=== PATIENT | male | born 1950 | race Two or more races ===

== ENCOUNTER 2025-02-11 13:21 | Inpatient (IN) | payer MEDICARE, OTHER ==
[~2025-02-11] VITALS: Ht 172.7 cm; Wt 48.8 kg
--- NOTE | 2025-02-11 13:37 | ED.PDOC ---
History of Present Illness HPI Comments 75-year-old male brought by paramedics from [facility] because of blood pressure elevation. His blood pressure has been high for the past week even though he is taking his losartan. His blood pressure prior to arrival was systolic 200. He was given losartan in the morning. Blood pressure on arrival was 165/74. Patient did have hip surgery last year since then he has been bed ridden. History of hypertension diabetes. Denies any other symptoms. Chief Complaint: High Blood Pressure Time Seen by MD: 13:30 Reviewed Notes: Nurses Notes, Medications, Allergies Allergies: Coded Allergies: Glipizide (Verified Allergy, Mild, 02/11/25) Information Source: Patient, Emergency Med Personnel Mode of Arrival: EMS Severity: Moderate Timing: Days Duration: Since onset Past Medical History PAST MEDICAL HISTORY: DM, HTN Surgical History: Denies all surgeries Social History Smoker: Non-Smoker Alcohol: Denies ETOH Use Drugs: Denies Drug Use Constitutional: denies: chills, diaphoresis, fatigue, fever, malaise, sweats, weakness, others EENTM: denies: blurred vision, double vision, ear bleeding, ear discharge, ear drainage, ear pain, ear ringing, eye pain, eye redness, hearing loss, mouth pain, mouth swelling, nasal discharge, nose bleeding, nose congestion, nose pain, photophobia, tearing, throat pain, throat swelling, voice changes, others Respiratory: denies: cough, hemoptysis, orthopnea, SOB at rest, shortness of breath, SOB with excertion, stridor, wheezing, others Cardiovascular: denies: chest pain, dizzy spells, diaphoresis, Dyspnea on exertion, edema, irregular heart beat, left arm pain, lightheadedness, palpitations, PND, syncope, others Gastrointestinal: denies: abdomen distended, abdominal pain, blood streaked bowels, constipated, diarrhea, dysphagia, difficulty swallowing, hematemesis, melena, nausea, poor appetite, poor fluid intake, rectal bleeding, rectal pain, vomiting, others Genitourinary: denies: burning, dysuria, flank pain, frequency, hematuria, incontinence, penile discharge, penile sore, pain, testicle pain, testicle swelling, urgency, others Neurological: denies: dizziness, fainting, headache, left sided numbness, left sided weakness, numbness, paresthesia, pre-existing deficit, right sided numbness, right sided weakness, seizure, speech problems, tingling, tremors, weakness, others Musculoskeletal: denies: back pain, gout, joint pain, joint swelling, muscle pain, muscle stiffness, neck pain, others Integumetry: denies: bruises, change in color, change in hair/nails, dryness, laceration, lesions, lumps, rash, wounds, others Allergic/Immunocompromised: denies: Difficulty Healing, Frequent Infections, Hives, Itching, others Hematologic/Lymphatic: denies: anemia, blood clots, easy bleeding, easy bruising, swollen glands, others Endocrine: denies: excessive hunger, excessive sweating, excessive thirst, excessive urination, flushing, intolerance to cold, intolerance to heat, unexplained weight gain, unexplained weight loss, others Psychiatric: denies: anxiety, bipolar disorder, depression, hopeless, panic disorder, schizophrenia, sleepless, suicidal, others Physical Exam General Appearance: Moderate Distress HEENT: Normal ENT Inspection, Pharynx Normal, TMs Normal Neck: Full Range of Motion, Non-Tender, Normal, Normal Inspection Respiratory: Chest Non-Tender, Lungs Clear, No Accessory Muscle Use, No Respiratory Distress, Normal Breath Sounds Cardiovascular: No Edema, No JVD, No Murmur, No Gallop, Normal Peripheral Pulses, Regular Rate/Rhythm Breast Exam: Deferred Gastrointestinal: No Organomegaly, Non Tender, No Pulsatile Mass, Normal Bowel Sounds, Soft Genitalia: Deferred Pelvic: Deferred Rectal: Deferred Extremities: No calf tenderness Musculoskeletal : Apperance: Normal Neurologic: Alert, Motor Weakness, No Sensory Deficits Cerebellar Function: NOT DONE Reflexes: NOT DONE Skin: Normal Color Peripheral Pulses: 3+ Radial (R), 3+ Radial (L) Lymphatic: No Adenopathy Was a procedure done? Was a procedure done?: No Differential Dx Considerations may include: Hypertension Electrolyte imbalance X-Ray, Labs, Meds, VS Vital Signs Date Time Temp Pulse Resp B/P (MAP) Pulse Ox O2 Delivery O2 Flow Rate FiO2 02/11/25 13:55 97.7 64 14 161/89 (113) 96 97.7 02/11/25 13:25 97.7 64 16 167/90 96 97.7 Lab Test 02/11/25 14:32 Range/Units White Blood Count 7.7 4.4-10.8 10^3/uL Red Blood Count 4.68 4.5-5.90 10^6/uL Hemoglobin 13.0 L 13.5-17.5 g/dL Hematocrit 38.5 L 41.0-53.0 % Mean Corpuscular Volume 82.3 80.0-100.0 fL Mean Corpuscular Hemoglobin 27.8 L 28.0-32.0 pg Mean Corpuscular Hemoglobin Concent 33.7 32.0-36.0 g/dL Red Cell Distribution Width 15.6 H 11.8-14.3 % Platelet Count 241 140-450 10^3/uL Mean Platelet Volume 7.2 6.9-10.8 fL Neutrophils (%) (Auto) 72.4 37.0-80.0 % Lymphocytes (%) (Auto) 11.1 10.0-50.0 % Monocytes (%) (Auto) 7.4 0.0-12.0 % Eosinophils (%) (Auto) 8.3 H 0.0-7.0 % Basophils (%) (Auto) 0.8 0.0-2.0 % Neutrophils # (Auto) 5.6 1.6-8.6 10 ^3/uL Lymphocytes # (Auto) 0.9 0.4-5.4 10 ^3/uL Monocytes # (Auto) 0.6 0-1.3 10 ^3/uL Eosinophils # (Auto) 0.6 0-0.8 10 ^3/uL Basophils # (Auto) 0.1 0-0.2 10 ^3/uL Nucleated Red Blood Cells 0.0 % Sodium Level 141 136-145 mmol/L Potassium Level 5.2 H 3.5-5.1 mmol/L Chloride Level 110 H 98-107 mmol/L Carbon Dioxide Level 22 20-31 mmol/L Anion Gap 9 5-15 Blood Urea Nitrogen 42 H 9-23 mg/dL Creatinine 2.07 H 0.700-1.30 mg/dL Glomerular Filtration Rate Calc 32 >90 mL/min BUN/Creatinine Ratio 20.3 H 10.0-20.0 Serum Glucose 161 H 74-106 mg/dL Calcium Level 9.5 8.7-10.4 mg/dL Troponin I High Sensitivity 6 </=54 ng/L Patient alert. Blood pressure elevated. Vitals stable. Answering all questions. Was given clonidine. He is bed ridden. Establish intravenous access. Was given fluids. Reviewed his previous visit. Explained to the patient. Continue monitoring. Time of 1ST Reevaluation: 13:35 Reevaluation 1ST: Unchanged Patient Education/Counseling: Diagnosis, Treatment, Prognosis Family Education/Counseling: No Family Present SEPSIS Sepsis Screen Date sepsis recognized/suspect: Feb 11, 2025 Time Sepsis recognized/suspect: 1326 Recent Procedure: No On Antibiotic Therapy: No Respiratory Rate >20: No Heart Rate >90: No Temp<36 C (96.8 F) or >38.3 C: No SBP <90 or MAP <65 mmHG: No New Acute Mental Status Change: No Is the patient on CPAP, BIPAP,: No Physician Orders Chest Portable (02/11/25 13:37) Urinalysis (02/11/25 13:37) Electrocardigram (02/11/25 13:37) Sodium Chloride 0.9% (02/11/25 13:45) Vital Signs Date Time Temp Pulse Resp B/P (MAP) Pulse Ox O2 Delivery O2 Flow Rate FiO2 02/11/25 13:55 97.7 64 14 161/89 (113) 96 97.7 02/11/25 13:25 97.7 64 16 167/90 96 97.7 Laboratory Tests Test 02/11/25 14:32 White Blood Count 7.7 10^3/uL (4.4-10.8) Departure 1 Departure Time of Disposition: 13:36 Impression: Primary Impression: Hypertensive urgency Disposition: ADMITTED INPATIENT Admit to: Med Surg Condition: Guarded Critical Care Note Critical Care Time?: Yes (90 min-critical care time only) Stability Stability form required: No Heart Score Heart Score: Heart Score Response (Comments) Value History Slightly Suspicious 0 EKG Normal 0 Age >65 2 Risk Factors >3 or Hx ASHD 2 Troponin Normal limit 0 Total 4 JOSE ELDRIDGE MD Feb 11, 2025 13:37
--- NOTE | 2025-02-11 14:15 | DVH ---
XY CHEST PORTABLE, HISTORY: sob COMPARISON: None None TECHNICAL DATA: 1 view of the chest was obtained. FINDINGS: Lines and tubes: None Cardiomediastinal silhouette: normal Pulmonary vasculature: normal Lung expansion: normal Lung airspace: normal Lung interstitium: normal Pleura: normal Pneumothorax: no Bones: Unremarkable Other: no IMPRESSION: No acute intrathoracic abnormality.
[2025-02-11 14:55] LABS: Hematocrit 38.5 % (41.0-53.0); Hemoglobin 13.0 g/dL (13.5-17.5); Mean Corpuscular Hemoglobin 27.8 pg (28.0-32.0); Mean Corpuscular Volume 82.3 fL (80.0-100.0); Nucleated Red Blood Cells % 0.0 %
[2025-02-11 15:05] LABS: Sodium 141 mmol/L (136-145)
[2025-02-11 15:06] LABS: Anion Gap 9 (5-15); Calcium 9.5 mg/dL (8.7-10.4); Carbon Dioxide 22 mmol/L (20-31); Chloride 110 mmol/L (98-107); Potassium 5.2 mmol/L (3.5-5.1)
[2025-02-11 15:11] LABS: BUN/Creatinine Ratio 20.3 (10.0-20.0); Blood Urea Nitrogen 42 mg/dL (9-23); Glucose 161 mg/dL (74-106)
[2025-02-11] MEDS: LABETALOL HCL 20 MG/4 ML VL IV ONE ×3 (16:54→22:39)
[2025-02-11] MEDS: SODIUM CHLORIDE 0.9% 1,000 ML IV ONE (17:50)
[2025-02-11 18:14] LABS: Urine Protein, UAD 2+ (Negative)
[2025-02-11 19:14] VITALS: PULSE 65; RESP 19; O2SAT 95
[2025-02-11] MEDS: HYDROcodone-ACET 5/325MG TAB PO ONE (20:24)
[2025-02-11] MEDS ORDERED: ONDANSETRON HCL 4 MG/2 ML VIAL IV PRN (22:45)
[2025-02-11] MEDS ORDERED: DOCUSATE SOD 100 MG CAP PO PRN (22:45)
[2025-02-11] MEDS ORDERED: DEXTROSE (50%) 50ML SYRG IV PRN (22:45)
[2025-02-11] MEDS ORDERED: ACETAMINOPHEN 325 MG TAB PO PRN (22:45)
[2025-02-11] MEDS: SODIUM ZIRCONIUM CYCL 10 GM PAK PO ONE (23:21)
--- NOTE | 2025-02-11 23:32 | DVHHP2 ---
History of Present Illness Reason for Visit: Hypertensive urgency History of Present Illness The patient is a 75-year-old male with past medical history of diabetes mellitus and hypertension who presented to [facility] ED with complaint of high blood pressure. His blood pressure has been high for the past week even though he is taking his losartan. His blood pressure prior to arrival was systolic 200. Patient was seen and evaluated in the ED, laboratory data shows WBC 7.7, hemoglobin 13.0, hematocrit 38.5, platelets 241, sodium 141, potassium 5.2, BUN 42, creatinine 2.07, glucose 161, calcium 9.5, troponin 6, blood pressure 218/111 trending down to 150/84, heart rate 62, temperature 97.7 F, O2 saturation 95% on room air. Chest x-ray show no acute intrathoracic abnormality. Please see medication orders section in the computer. On my assessment, patient denied chest pain, no headache, no dizziness, no shortness of breaths, no nausea, no vomiting, no fever, no chills. Patient was admitted for further evaluation and medical management. Past Medical History DM, HTN Past Surgical History Left hip fracture Family History Reviewed, noncontributory to the management of this case. Past Social History The patient lives at home, denies smoking, alcohol or illicit drugs abuse. Review of Systems Constitutional: Yes: Weakness; No: Fever, Chills, Sweats, Malaise, Other Eyes: No: Pain, Vision change, Conjunctivae inflammation, Eyelid inflammation, Other, Redness ENT: No: Ear pain, Ear discharge, Nose pain, Nose discharge, Nose congestion, Mouth pain, Mouth swelling, Throat pain, Throat swelling, Other Respiratory: No: Cough, Dry, Shortness of breath, SOB with excertion, Wheezing, Hemoptysis, Pleuritic Pain, Sputum, Wheezing, Other Cardiovascular: Other (Hypertension); No: Chest Pain, Palpitations, Orthopnea, Paroxysmal Noc. Dyspnea, Edema, Lt Headedness Gastrointestinal: No: Nausea, Vomiting, Abdominal Pain, Diarrhea, Constipation, Melena, Hematochezia, Other Genitourinary: No Dysuria, No Frequency, No Incontinence, No Hematuria, No Retention, No Other Musculoskeletal: No: other, neck pain, shoulder pain, arm pain, back pain, hand pain, leg pain, foot pain Skin: Other (Lower extremity skin discoloration); No: Rash, Lesions, Jaundice, Bruising Neurological: No: Weakness, Numbness, Incoordination, Change in speech, Confusion, Seizures, Other Allergies: Coded Allergies: Glipizide (Verified Allergy, Mild, 02/11/25) Medications Current Medications Medications Dose Ordered Sig/Norma Route Start Time Stop Time Status Last Admin Dose Admin Amlodipine Besylate 10 mg DAILY PO 02/12/25 10:00 Benazepril HCl 20 mg DAILY PO 02/12/25 10:00 UNV Hydralazine HCl 10 mg Q6HP PRN IV 02/11/25 22:45 Diagnostic Test (Pha) 1 strip IQ4HR 02/12/25 00:00 Insulin Human Regular IQ4HR SC 02/12/25 00:00 Dextrose 50 ml UD PRN IV 02/11/25 22:45 Sodium Chloride 10 ml Q8HR IV 02/12/25 06:00 Acetaminophen/ Hydrocodone Bitart 1 tab Q4HP PRN PO 02/11/25 22:45 Ondansetron HCl 4 mg Q4HP PRN IV 02/11/25 22:45 Docusate Sodium 100 mg BIDPRN PRN PO 02/11/25 22:45 Acetaminophen 650 mg Q6HP PRN PO 02/11/25 22:45 Exam Vital Signs Vital Signs Date Time Temp Pulse Resp B/P (MAP) Pulse Ox O2 Delivery O2 Flow Rate FiO2 02/11/25 23:23 107 126/96 02/11/25 19:14 19 95 Room Air* 0 21 02/11/25 13:55 97.7 97.7 General Appearance: Alert, Oriented X3, Cooperative, No acute distress HEENT: Atraumatic, PERRLA, EOMI, Mucous membr. moist/pink Respiratory: Clear to auscultation, Normal air movement Cardiovascular: Regular rate, Normal S1, Normal S2, No murmurs Abdominal: Normal bowel sounds, Soft, No tenderness, No hepatospenomegaly, No masses Extremities: No clubbing, No cyanosis, No edema, Normal pulses, No tenderness/swelling Skin: No rashes, No breakdown, No significant lesion Neuro: Normal speech, Normal tone, Sensation intact, Cranial nerves 3-12 NL, Reflexes 2+, Other (Generalized weakness) Psych/Mental Status: Mental status NL, Mood NL Labs/Xrays Labs Test 02/11/25 16:15 8/21/25 14:32 Range/Units Urine Color Light-yellow Yellow Urine Clarity Clear Clear Urine pH 6.0 5.0-9.0 Urine Specific [place] 1.014 1.001-1.035 Urine Protein 2+ H Negative Urine Ketones Negative Negative Urine Blood Trace H Negative /uL Urine Nitrite Negative Negative Urine Bilirubin Negative Negative Urine Urobilinogen Normal Negative mg/dL Urine Leukocyte Esterase Negative Negative /uL Urine RBC 1 0 - 3 /hpf Urine Microscopic WBC 1 0-3 /HPF Urine Squamous Epithelial Cells None seen <5 /hpf Urine Bacteria None seen None Seen /hpf Urine Glucose 2+ H Normal mg/dL White Blood Count 7.7 4.4-10.8 10^3/uL Red Blood Count 4.68 4.5-5.90 10^6/uL Hemoglobin 13.0 L 13.5-17.5 g/dL Hematocrit 38.5 L 41.0-53.0 % Mean Corpuscular Volume 82.3 80.0-100.0 fL Mean Corpuscular Hemoglobin 27.8 L 28.0-32.0 pg Mean Corpuscular Hemoglobin Concent 33.7 32.0-36.0 g/dL Red Cell Distribution Width 15.6 H 11.8-14.3 % Platelet Count 241 140-450 10^3/uL Mean Platelet Volume 7.2 6.9-10.8 fL Neutrophils (%) (Auto) 72.4 37.0-80.0 % Lymphocytes (%) (Auto) 11.1 10.0-50.0 % Monocytes (%) (Auto) 7.4 0.0-12.0 % Eosinophils (%) (Auto) 8.3 H 0.0-7.0 % Basophils (%) (Auto) 0.8 0.0-2.0 % Neutrophils # (Auto) 5.6 1.6-8.6 10 ^3/uL Lymphocytes # (Auto) 0.9 0.4-5.4 10 ^3/uL Monocytes # (Auto) 0.6 0-1.3 10 ^3/uL Eosinophils # (Auto) 0.6 0-0.8 10 ^3/uL Basophils # (Auto) 0.1 0-0.2 10 ^3/uL Nucleated Red Blood Cells 0.0 % Sodium Level 141 136-145 mmol/L Potassium Level 5.2 H 3.5-5.1 mmol/L Chloride Level 110 H 98-107 mmol/L Carbon Dioxide Level 22 20-31 mmol/L Anion Gap 9 5-15 Blood Urea Nitrogen 42 H 9-23 mg/dL Creatinine 2.07 H 0.700-1.30 mg/dL Glomerular Filtration Rate Calc 32 >90 mL/min BUN/Creatinine Ratio 20.3 H 10.0-20.0 Serum Glucose 161 H 74-106 mg/dL Calcium Level 9.5 8.7-10.4 mg/dL Troponin I High Sensitivity 6 </=54 ng/L PATIENT: GAURAV MCCARTHY ACCT: [id number] UNIT: [id number] : 1950 LOC: ER ROOM / BED: / AGE / SEX: 75 / M ADM STATUS: REG ER SERVICE 1337 ORDERING PHYSICIAN: JOSE ELDRIDGE MD PROCEDURE(s): CXRP - CHEST PORTABLE REASON: sob ORDER NUMBER(s): [id number], ACCESSION NUMBER(s): [id number] XY CHEST PORTABLE, HISTORY: sob COMPARISON: None None TECHNICAL DATA: 1 view of the chest was obtained. FINDINGS: Lines and tubes: None Cardiomediastinal silhouette: normal Pulmonary vasculature: normal Lung expansion: normal Lung airspace: normal Lung interstitium: normal Pleura: normal Pneumothorax: no Bones: Unremarkable Other: no IMPRESSION: No acute intrathoracic abnormality. SEPSIS Sepsis Screen Date sepsis recognized/suspect: Feb 11, 2025 Time Sepsis recognized/suspect: 1400 Recent Procedure: No On Antibiotic Therapy: No Respiratory Rate >20: No Heart Rate >90: No Temp<36 C (96.8 F) or >38.3 C: No SBP <90 or MAP <65 mmHG: No New Acute Mental Status Change: No Is the patient on CPAP, BIPAP,: No Physician Orders Insert Midline (02/11/25 15:50) Journeyman Operator Assistant (02/11/25 ) Consistent Carb(Ccho)Diabetes (02/12/25 Breakfast) Amlodipine Tablet (Norvasc Tablet) (02/12/25 10:00) Benazepril Hcl Tablet (Lotensin Tablet) (02/12/25 10:00) Hydralazine Injection (Apresoline Inject (02/11/25 22:45) *[facility] (02/11/25 22:31) Glucose Blood (Accu-Chek Comfort Curve T (02/12/25 00:00) Insulin R (Human) (Insulin R) (02/12/25 00:00) Dextrose 50% Syringe (02/11/25 22:45) Allergies (02/11/25:31) Code Status (02/11/25:) Sodium Chloride Lock (Saline Lock Ns) (02/12/25 06:00) Oxygen Per Hour (02/11/25:31) Hydrocodone-Acet 5/325mg Tab ([place] 5/32 (02/11/25 22:45) Ondansetron Hcl (Zofran) (02/11/25 22:45) Docusate Sodium Capsule (Colace Capsule) (02/11/25 22:45) Complete Blood Count (02/12/25 04:00) Comprehensive Metabolic Panel (02/12/25 04:00) Condition: Serious (02/11/25 22:31) Acetaminophen Tablet (Tylenol Tablet) (02/11/25 22:45) Bedrest With Bathroom Privileg (02/11/25 22:31) Sequential Compression Device (02/11/25 ) Admit (02/11/25 23:31) Nitroglycerin Sublingual (Ntrostat Subli (02/11/25 23:45) Morphine Sulfate Injection (02/11/25 23:45) Stat Ekg For Chest Pain (02/11/25 23:31) Notify Md Of Changes From Base (02/11/25 23:31) Coding Team Lead For 24 Hours (02/11/25 23:31) Emergency Dysrhythmia Protocol (02/11/25 23:31) Rhythm Strips Once Every Shift (02/11/25 23:31) Oxygen By Nasal Cannula (02/11/25 23:31) Vital Signs Date Time Temp Pulse Resp B/P (MAP) Pulse Ox O2 Delivery O2 Flow Rate FiO2 02/11/25 23:23 107 126/96 02/11/25 23:21 129/66 02/11/25 22:39 68 205/97 02/11/25 21:26 69 143/85 02/11/25 20:26 61 195/92 02/11/25 20:00 61 02/11/25 19:51 195/92 (126) 02/11/25 19:14 65 19 95 Room Air* 0 21 02/11/25 19:00 65 19 165/94 (117) 95 02/11/25 18:00 111 22 111/65 (80) 95 02/11/25 17:52 59 151/84 02/11/25 17:21 151/84 (106) 02/11/25 16:54 72 218/112 02/11/25 16:00 132 20 118/68 (85) 92 Laboratory Tests Test 02/11/25 14:32 White Blood Count 7.7 10^3/uL (4.4-10.8) Medications Medications Dose Ordered Sig/Norma Route Start Time Stop Time Status Last Admin Dose Admin Acetaminophen/ Hydrocodone Bitart 1 tab ONCE ONCE PO 02/11/25 20:15 02/11/25 20:16 DC 02/11/25 20:24 1 TAB Amlodipine Besylate 10 mg ONCE ONCE PO 02/11/25 22:45 02/11/25 22:47 DC 02/11/25 23:21 10 MG Labetalol HCl 10 mg ONCE ONCE IV 02/11/25 16:50 02/11/25 16:51 DC 02/11/25 16:54 10 MG Labetalol HCl 10 mg ONCE ONCE IV 02/11/25 20:15 02/11/25 20:16 DC 02/11/25 20:26 10 MG Labetalol HCl 10 mg ONCE ONCE IV 02/11/25 22:45 02/11/25 22:46 DC 02/11/25 22:39 10 MG Sodium Chloride 1,000 ml @ 150 mls/hr Q6H40M ONCE IV 02/11/25 13:45 02/11/25 20:24 DC 02/11/25 17:50 150 MLS/HR Zirconium Oxide 10 gm ONCE ONCE PO 02/11/25 22:45 02/11/25 22:47 DC 02/11/25 23:21 10 GM Assessment/Plan Assessment/Plan Hypertensive urgency Hyperkalemia Acute renal failure Generalized weakness Diabetes mellitus with hyperglycemia Plan 1. Admit to telemetry unit 2. Breathing treatment 3. Pain control management 4. Management of fluids and electrolytes 5. Consultation for Nephrology 6. Diagnostic tests chest x-ray 7. DVT prophylaxis on SCDs 8. Repeat labs CBC, CMP in a.m. 9. Continue with current medical management 10. Treatment plan discussed with patient and RN. Patient verbalized understanding. Plan discussed with: Patient, Other (RN) My Orders Orders - ARVIN ROMO DNP Procedure Category Date Status Time Consistent DIET 02/12/25 Transmitted Carb(Ccho)Diabetes Breakfast Amlodipine Tablet PHA 02/12/25 In Process (Norvasc Tablet) 10:00 Benazepril Hcl Tablet PHA 02/12/25 Pending (Lotensin Tablet) 10:00 Hydralazine Injection PHA 02/11/25 In Process (Apresoline Inject 22:45 *[facility] CONS 02/11/25 Transmitted -[place] 22:31 Glucose Blood PHA 02/12/25 In Process (Accu-Chek Comfort 00:00 Insulin R (Human) PHA 02/12/25 In Process (Insulin R) 00:00 Dextrose 50% Syringe PHA 02/11/25 In Process 22:45 Allergies [place] 02/11/25 In Process 22:31 Code Status CODE 02/11/25 Transmitted 22:31 Sodium Chloride Lock PHA 02/12/25 In Process (Saline Lock Ns) 06:00 Oxygen Per Hour RT 02/11/25 Transmitted 22:31 Hydrocodone-Acet PHA 02/11/25 In Process 5/325mg Tab ([place] 22:45 Ondansetron Hcl PHA 02/11/25 In Process (Zofran) 22:45 Docusate Sodium PHA 02/11/25 In Process Capsule (Colace 22:45 Complete Blood Count LAB 02/12/25 Verified 04:00 Comprehensive LAB 02/12/25 Verified Metabolic Panel 04:00 Condition: Serious [place] 02/11/25 In Process 22:31 Acetaminophen Tablet PHA 02/11/25 In Process (Tylenol Tablet) 22:45 Bedrest With Bathroom [place] 02/11/25 In Process Privileg 22:31 Sequential [place] 02/11/25 In Process Compression Device Admit ADMIT 02/11/25 Transmitted 23:31 Nitroglycerin PHA 02/11/25 Transmitted Sublingual (Ntrostat 23:45 Morphine Sulfate PHA 02/11/25 Transmitted Injection 23:45 Stat Ekg For Chest [place] 02/11/25 Transmitted Pain 23:31 Notify Of Changes [place] 02/11/25 Transmitted From Base 23:31 Coding Team Lead For [place] 02/11/25 Transmitted 24 Hours 23:31 Emergency Dysrhythmia [facility] 02/11/25 Transmitted Protocol 23:31 Rhythm Strips Once [place] 02/11/25 Transmitted Every Shift 23:31 Oxygen By Nasal RT 02/11/25 Transmitted Cannula 23:31 Problem List: (1) Hypertensive urgency (2) Hyperkalemia (3) Acute renal failure (4) Generalized weakness (5) Diabetes mellitus with hyperglycemia Date of Service: Feb 11, 2025 Billing Provider: ARVIN ROMO DNP Common Visit Codes: [id number] INP/OBS CARE (HIGH) ARVIN ROMO DNP Feb 11, 2025 23:32
[2025-02-11] MEDS ORDERED: NITROGLYCERIN 0.4 MG SL TAB SL PRN (23:45)
[2025-02-11] MEDS ORDERED: MORPHINE SULFATE INJ 2 MG/ml SYRG IV PRN (23:45)
[2025-02-12] VITALS (8 sets, daily range): BP systolic 144–161; BP diastolic 76–87; PULSE 61–71; RESP 16–18; TEMP 97.6–98.1; O2SAT 95–98
[2025-02-12] MEDS: ACCU-CHEK COMFORT CURVE STRIP VI SCH (00:38)
[2025-02-12] MEDS: InsuLIN REG 1unit/0.01ml Soln (100units/ml) SC SCH (00:41)
[2025-02-12] MEDS: SODIUM CHLOR 0.9% PF (SALINE LOCK) 10ML VIAL/SYR IV SCH (04:25)
[2025-02-12] MEDS: HYDROcodone-ACET 5/325MG TAB PO PRN (05:13)
--- NOTE | 2025-02-12 06:47 | ECG ---
[facility] Test Date: 2025-02-11 Test Time: 15:09:13 Pat Name: GAURAV MCCARTHY Department: [facility] ED Patient ID: [facility]-[id number] Room: 0218T A Gender: M Motor Vehicle Assembly Supervisor: renetta : 1950 Requested By: JOSE ELDRIDGE Order Number: [id number] Reading MD: Félix Talamantes Measurements Intervals [place] Rate: 59 P: 17 CO: 194 QRS: 83 QRSD: 112 T: 82 QT: 427 QTc: 423 Interpretive Statements Sinus rhythm Borderline intraventricular conduction delay Electronically Signed On 02-16-2025 14:26:36 PDT by Félix Talamantes Please click the below link to view image of tracing.
[2025-02-12 08:49] LABS: Hematocrit 39.3 % (41.0-53.0); Hemoglobin 12.7 g/dL (13.5-17.5); Mean Corpuscular Hemoglobin 28.0 pg (28.0-32.0); Mean Corpuscular Volume 86.5 fL (80.0-100.0); Nucleated Red Blood Cells % 0.0 %
[2025-02-12 09:06] LABS: Alanine Aminotransferase 10 U/L (7-40); Albumin 3.7 g/dL (3.2-4.8); Alkaline Phosphatase 84 U/L (46-116); Anion Gap 11 (5-15); BUN/Creatinine Ratio 25.0 (10.0-20.0); Calcium 9.0 mg/dL (8.7-10.4); Potassium 4.9 mmol/L (3.5-5.1); Sodium 144 mmol/L (136-145); Total Protein 6.1 g/dL (5.7-8.2)
[2025-02-12 09:13] LABS: Bilirubin, Total 0.2 mg/dL (0.2-1.0); Blood Urea Nitrogen 51 mg/dL (9-23); Carbon Dioxide 19 mmol/L (20-31); Chloride 114 mmol/L (98-107); Glucose 127 mg/dL (74-106)
--- NOTE | 2025-02-12 09:56 | DVHINCON2 ---
Date of service: Feb 12, 2025 Referring Physician Raimundo Hopkins, nurse practitioner Reason for Consultation Acute kidney injury History of Present Illness Patient is a 75-year-old male with past medical history significant for diabetes mellitus type 2, atrial fibrillation, prolapsed disc and hypertension is admitted from a [facility] for hypertensive urgency. On admission patient found to have elevated BUN creatinine nephrology is consulted for acute kidney injury Past Medical History PAST MEDICAL HISTORY: DM, HTN, AFib, mentioned prolapse disk, bed-bound Past Surgical History Surgical History: Back surgery Allergies: Coded Allergies: Glipizide (Verified Allergy, Mild, 02/11/25) Current Medications Current Medications Medications (Trade) Dose Ordered Sig/Norma Route PRN Reason Start Time Stop Time Status Last Admin Amlodipine Besylate (Norvasc Tablet) 10 mg DAILY PO 02/12/25 10:00 Benazepril HCl (Lotensin Tablet) 20 mg DAILY PO 02/12/25 10:00 Future Hold Hydralazine HCl (Apresoline Injection) 10 mg Q6HP PRN IV SBP>150 02/11/25 22:45 Diagnostic Test (Pha) (Accu-Chek Comfort Curve T) 1 strip IQ4HR 02/12/25 00:00 02/12/25 08:20 Insulin Human Regular (InsuLIN R) IQ4HR SC 02/12/25 00:00 02/12/25 08:21 Dextrose 50 ml UD PRN IV Blood Sugar LESS THAN 60 02/11/25 22:45 Sodium Chloride (Saline Lock Ns) 10 ml Q8HR IV 02/12/25 06:00 02/12/25 04:25 Acetaminophen/ Hydrocodone Bitart ([place] 5/325MG Tab) 1 tab Q4HP PRN PO MODERATE PAIN (4-6 PAIN SCALE) 02/11/25 22:45 02/12/25 05:13 Ondansetron HCl (Zofran) 4 mg Q4HP PRN IV NAUSEA / VOMITING 02/11/25 22:45 Docusate Sodium (Colace Capsule) 100 mg BIDPRN PRN PO FOR CONSTIPATION 02/11/25 22:45 Acetaminophen (Tylenol Tablet) 650 mg Q6HP PRN PO PAIN SCALE 1-3 OR TEMP>100.4 02/11/25 22:45 Nitroglycerin (Ntrostat Sublingual) 0.4 mg Q5MINP PRN SL FOR CHEST PAIN 02/11/25 23:45 Morphine Sulfate 2 mg Q30M PRN IV FOR CHEST PAIN 02/11/25 23:45 Family History: FH: cancer G8 FATHER Malignant neoplasm of breast G8 MOTHER Review of Systems All 12 item review of systems reviewed with the patient nonsignificant except what is mentioned in the history of present illness H&P Exam Vital Signs/I&O Vital Sign Date Time Temp Pulse Resp B/P (MAP) Pulse Ox O2 Delivery O2 Flow Rate FiO2 02/12/25 08:42 98.1 61 16 144/81 (102) 95 98.1 02/12/25 04:33 Nasal Cannula* 2 28 Intake and Output 02/11/25 02/12/25 19:00 07:00 Intake Total 150 ml Output Total 300 ml Balance 150 ml -300 ml Intake IV Total 150 ml Output Urine Total 300 ml Physical Exam Patient lying comfortably in bed appeared in no acute distress Lungs clear to auscultation bilaterally Cardiac exam regular rate and rhythm GI obese nontender was normal Extremities no clubbing cyanosis or edema Neuro has limited movement of bilateral lower extremity Labs/Diagnostic Data Labs/Diagnostic Data Laboratory Tests Test 02/12/25 08:11 02/12/25 06:48 02/12/25 04:19 02/12/25 00:37 Range/Units POC Glucose 137 H 218 H 252 H 70-106 mg/dl White Blood Count 8.8 4.4-10.8 10^3/uL Red Blood Count 4.54 4.5-5.90 10^6/uL Hemoglobin 12.7 L 13.5-17.5 g/dL Hematocrit 39.3 L 41.0-53.0 % Mean Corpuscular Volume 86.5 # 80.0-100.0 fL Mean Corpuscular Hemoglobin 28.0 28.0-32.0 pg Mean Corpuscular Hemoglobin Concent 32.4 32.0-36.0 g/dL Red Cell Distribution Width 15.7 H 11.8-14.3 % Platelet Count 224 140-450 10^3/uL Mean Platelet Volume 7.3 6.9-10.8 fL Neutrophils (%) (Auto) 73.3 37.0-80.0 % Lymphocytes (%) (Auto) 10.1 10.0-50.0 % Monocytes (%) (Auto) 8.4 0.0-12.0 % Eosinophils (%) (Auto) 7.2 H 0.0-7.0 % Basophils (%) (Auto) 1.0 0.0-2.0 % Neutrophils # (Auto) 6.4 1.6-8.6 10 ^3/uL Lymphocytes # (Auto) 0.9 0.4-5.4 10 ^3/uL Monocytes # (Auto) 0.7 0-1.3 10 ^3/uL Eosinophils # (Auto) 0.6 0-0.8 10 ^3/uL Basophils # (Auto) 0.1 0-0.2 10 ^3/uL Nucleated Red Blood Cells 0.0 % Sodium Level 144 136-145 mmol/L Potassium Level 4.9 3.5-5.1 mmol/L Chloride Level 114 H 98-107 mmol/L Carbon Dioxide Level 19 L 20-31 mmol/L Anion Gap 11 5-15 Blood Urea Nitrogen 51 H 9-23 mg/dL Creatinine 2.04 H 0.700-1.30 mg/dL Glomerular Filtration Rate Calc 33 >90 mL/min BUN/Creatinine Ratio 25.0 H 10.0-20.0 Serum Glucose 127 H 74-106 mg/dL Calcium Level 9.0 8.7-10.4 mg/dL Total Bilirubin 0.2 0.2-1.0 mg/dL Aspartate Amino Transferase (AST) 15 13-40 U/L Alanine Aminotransferase (ALT) 10 7-40 U/L Alkaline Phosphatase 84 46-116 U/L Total Protein 6.1 5.7-8.2 g/dL Albumin 3.7 3.2-4.8 g/dL Test 02/11/25 16:15 02/11/25 14:32 Range/Units Urine Color Light-yellow Yellow Urine Clarity Clear Clear Urine pH 6.0 5.0-9.0 Urine Specific [place] 1.014 1.001-1.035 Urine Protein 2+ H Negative Urine Ketones Negative Negative Urine Blood Trace H Negative /uL Urine Nitrite Negative Negative Urine Bilirubin Negative Negative Urine Urobilinogen Normal Negative mg/dL Urine Leukocyte Esterase Negative Negative /uL Urine RBC 1 0 - 3 /hpf Urine Microscopic WBC 1 0-3 /HPF Urine Squamous Epithelial Cells None seen <5 /hpf Urine Bacteria None seen None Seen /hpf Urine Glucose 2+ H Normal mg/dL White Blood Count 7.7 4.4-10.8 10^3/uL Red Blood Count 4.68 4.5-5.90 10^6/uL Hemoglobin 13.0 L 13.5-17.5 g/dL Hematocrit 38.5 L 41.0-53.0 % Mean Corpuscular Volume 82.3 80.0-100.0 fL Mean Corpuscular Hemoglobin 27.8 L 28.0-32.0 pg Mean Corpuscular Hemoglobin Concent 33.7 32.0-36.0 g/dL Red Cell Distribution Width 15.6 H 11.8-14.3 % Platelet Count 241 140-450 10^3/uL Mean Platelet Volume 7.2 6.9-10.8 fL Neutrophils (%) (Auto) 72.4 37.0-80.0 % Lymphocytes (%) (Auto) 11.1 10.0-50.0 % Monocytes (%) (Auto) 7.4 0.0-12.0 % Eosinophils (%) (Auto) 8.3 H 0.0-7.0 % Basophils (%) (Auto) 0.8 0.0-2.0 % Neutrophils # (Auto) 5.6 1.6-8.6 10 ^3/uL Lymphocytes # (Auto) 0.9 0.4-5.4 10 ^3/uL Monocytes # (Auto) 0.6 0-1.3 10 ^3/uL Eosinophils # (Auto) 0.6 0-0.8 10 ^3/uL Basophils # (Auto) 0.1 0-0.2 10 ^3/uL Nucleated Red Blood Cells 0.0 % Sodium Level 141 136-145 mmol/L Potassium Level 5.2 H 3.5-5.1 mmol/L Chloride Level 110 H 98-107 mmol/L Carbon Dioxide Level 22 20-31 mmol/L Anion Gap 9 5-15 Blood Urea Nitrogen 42 H 9-23 mg/dL Creatinine 2.07 H 0.700-1.30 mg/dL Glomerular Filtration Rate Calc 32 >90 mL/min BUN/Creatinine Ratio 20.3 H 10.0-20.0 Serum Glucose 161 H 74-106 mg/dL Calcium Level 9.5 8.7-10.4 mg/dL Troponin I High Sensitivity 6 </=54 ng/L Assessment Acute kidney injury superimposed Chronic Kidney Disease secondary hemodynamic mediated Hypertensive urgency Diabetes mellitus type 2 Atrial fibrillation Bed-bound Paraplegia Recommendations Closely monitor fluid and electrolytes Avoid nephrotoxic medications Strict I&Os Questions for me Check urine electrolytes and protein excretion Check kidney ultrasound Insulin sliding scale Blood pressure control We will continue to follow Patient seen and examined by myself. I discussed my plan of care with the patient and primary nurse at the bedside I would like to thank Raimundo for the consult, will follow Plan discussed with: Patient MEGAN CARLTON MD Feb 12, 2025 09:56
[2025-02-12] MEDS ORDERED: BENAZEPRIL HCL 10 MG TAB PO SCH (10:00)
[2025-02-12 10:27] LABS: Magnesium 2.0 mg/dL (1.6-2.6)
--- NOTE | 2025-02-12 11:11 | DVH ---
US KIDNEY HISTORY: bryn COMPARISON: None TECHNIQUE: Transverse and longitudinal grayscale and color doppler images were obtained of the kidney s and bladder. FINDINGS: Right kidney: Size: 9.5 cm Cortical thickness: Normal Echogenicity: Increased Stones: None Masses: 2.8 cm cyst. Hydronephrosis: None Ureters: Not well visualized. Other: None Left kidney: Size: 11.3 cm Cortical thickness: Normal Echogenicity: Normal Stones: 1.1 cm stone. Masses: None Hydronephrosis: None Ureters: Not well visualized. Other: None Bladder: Normal Other: Prominent prostate. IMPRESSION: Probable 1.1 cm nonobstructive left kidney stone. Echogenic right kidney seen with medical renal disease.
--- NOTE | 2025-02-12 12:36 | DVHPN2 ---
Reviewed: Care Plan, H&P, Labs, Medications, Previous Orders, Radiology Changes from previous H/P or p: No Changes Eyes: No Pain, No Vision change, No Conjunctivae inflammation, No Eyelid inflammation, No Other, No Redness ENT: No Ear pain, No Ear discharge, No Nose pain, No Nose discharge, No Nose congestion, No Mouth pain, No Mouth swelling, No Throat pain, No Throat swelling, No Other Cardiovascular: No Chest Pain, No Palpitations, No Orthopnea, No Paroxysmal Noc. Dyspnea, No Edema, No Lt Headedness; Other (Hypertension) Respiratory: No Cough, No Dry, No Shortness of breath, No SOB with excertion, No Wheezing, No Hemoptysis, No Pleuritic Pain, No Sputum, No Other Gastrointestinal: No Nausea, No Vomiting, No Abdominal Pain, No Diarrhea, No Constipation, No Melena, No Hematochezia, No Other Genitourinary: No Dysuria, No Frequency, No Incontinence, No Hematuria, No Retention, No Other Musculoskeletal: No other, No neck pain, No shoulder pain, No arm pain, No back pain, No hand pain, No leg pain, No foot pain Skin: No Rash, No Lesions, No Jaundice, No Bruising; Other (Lower extremity skin discoloration) Objective Vitals Vital Signs Date Time Temp Pulse Resp B/P (MAP) Pulse Ox O2 Delivery O2 Flow Rate FiO2 02/12/25 10:29 144/81 02/12/25 08:42 98.1 61 16 95 98.1 02/12/25 04:33 Nasal Cannula* 2 28 Intake/Output Intake and Output 02/12/25 07:00 Intake Total 150 ml Output Total 300 ml Balance -150 ml Intake IV Total 150 ml Output Urine Total 300 ml Medications Current Medications Medications Dose Ordered Sig/Norma Route Start Time Stop Time Status Last Admin Dose Admin Amlodipine Besylate 10 mg DAILY PO 02/12/25 10:00 02/12/25 10:29 10 MG Benazepril HCl 20 mg DAILY PO 02/12/25 10:00 Hold Hydralazine HCl 10 mg Q6HP PRN IV 02/11/25 22:45 Diagnostic Test (Pha) 1 strip IQ4HR 02/12/25 00:00 02/12/25 12:22 1 STRIP Insulin Human Regular IQ4HR SC 02/12/25 00:00 02/12/25 12:23 2 UNITS Dextrose 50 ml UD PRN IV 02/11/25 22:45 Sodium Chloride 10 ml Q8HR IV 02/12/25 06:00 02/12/25 04:25 10 ML Acetaminophen/ Hydrocodone Bitart 1 tab Q4HP PRN PO 02/11/25 22:45 02/12/25 10:28 1 TAB Ondansetron HCl 4 mg Q4HP PRN IV 02/11/25 22:45 Docusate Sodium 100 mg BIDPRN PRN PO 02/11/25 22:45 Acetaminophen 650 mg Q6HP PRN PO 02/11/25 22:45 Nitroglycerin 0.4 mg Q5MINP PRN SL 02/11/25 23:45 Morphine Sulfate 2 mg Q30M PRN IV 02/11/25 23:45 Sodium Bicarbonate 650 mg TID PO 02/12/25 14:00 Laboratory Results Laboratory Tests 02/12/25 06:48 Chemistry Test 02/11/25 14:32 02/12/25 06:48 Calcium Level 9.5 mg/dL (8.7-10.4) 9.0 mg/dL (8.7-10.4) Albumin 3.7 g/dL (3.2-4.8) Magnesium Level 2.0 mg/dL (1.6-2.6) Phosphorus Level 4.0 mg/dL (2.4-5.1) Total Protein 6.1 g/dL (5.7-8.2) Cardiac Markers Test 02/12/25 12:07 B-Type Natriuretic Peptide Pending LFT Test 02/12/25 06:48 Alanine Aminotransferase (ALT) 10 U/L (7-40) Alkaline Phosphatase 84 U/L (46-116) Aspartate Amino Transferase (AST) 15 U/L (13-40) Total Bilirubin 0.2 mg/dL (0.2-1.0) Urinalysis Test 02/11/25 16:15 Urine Color Light-yellow (Yellow) Urine Clarity Clear (Clear) Urine pH 6.0 (5.0-9.0) Urine Specific [place] 1.014 (1.001-1.035) Urine Protein 2+ (Negative) H Urine Ketones Negative (Negative) Urine Blood Trace /uL (Negative) H Urine Nitrite Negative (Negative) Urine Bilirubin Negative (Negative) Urine Urobilinogen Normal mg/dL (Negative) Urine Leukocyte Esterase Negative /uL (Negative) Urine RBC 1 /hpf (0 - 3) Urine Microscopic WBC 1 /HPF (0-3) Urine Squamous Epithelial Cells None seen /hpf (<5) Urine Bacteria None seen /hpf (None Seen) Urine Glucose 2+ mg/dL (Normal) H Labs and/or images reviewed: Labs reviewed by me, Image(s) reviewed by me Assessment/Plan Assessment/Plan Acute kidney injury superimposed Chronic Kidney Disease secondary hemodynamic mediated, consult by Dr. Olivia appreciated Hypertensive urgency: Losartan, amlodipine Diabetes mellitus type 2 Atrial fibrillation Bed-bound Paraplegia Plan discussed with: Patient Date of Service: Feb 12, 2025 Billing Provider: TRANG MONTERROSO MD Common Visit Codes: [id number] INP/OBS CARE(HIGH) TRANG MONTERROSO MD Feb 12, 2025 12:36
[2025-02-12] MEDS: LOSARTAN POTASSIUM 50 MG TAB PO ONE (15:03)
[2025-02-12] MEDS: SODIUM BICARBONATE 650 MG TAB PO SCH (15:03)
[2025-02-12 20:19] LABS: Urine Budding Yeast LOADED /hpf (None Seen); Urine Protein, UAD 3+ (Negative)
[2025-02-12 20:58] LABS: Protein, Urine 785.0 mg/dL (1-14)
[2025-02-13] VITALS (8 sets, daily range): BP systolic 125–184; BP diastolic 76–122; PULSE 64–83; RESP 16–19; TEMP 97.7–98.3; O2SAT 96–97
[2025-02-13] MEDS: hydrALAZINE HCL 20 MG/ML VL IV PRN (00:59)
--- NOTE | 2025-02-13 08:40 | DVHPN2 ---
Reviewed: Care Plan, H&P, Labs, Medications, Previous Orders, Radiology Changes from previous H/P or p: No Changes Eyes: No Pain, No Vision change, No Conjunctivae inflammation, No Eyelid inflammation, No Other, No Redness ENT: No Ear pain, No Ear discharge, No Nose pain, No Nose discharge, No Nose congestion, No Mouth pain, No Mouth swelling, No Throat pain, No Throat swelling, No Other Cardiovascular: No Chest Pain, No Palpitations, No Orthopnea, No Paroxysmal Noc. Dyspnea, No Edema, No Lt Headedness; Other (Hypertension) Respiratory: No Cough, No Dry, No Shortness of breath, No SOB with excertion, No Wheezing, No Hemoptysis, No Pleuritic Pain, No Sputum, No Other Gastrointestinal: No Nausea, No Vomiting, No Abdominal Pain, No Diarrhea, No Constipation, No Melena, No Hematochezia, No Other Genitourinary: No Dysuria, No Frequency, No Incontinence, No Hematuria, No Retention, No Other Musculoskeletal: No other, No neck pain, No shoulder pain, No arm pain, No back pain, No hand pain, No leg pain, No foot pain Skin: No Rash, No Lesions, No Jaundice, No Bruising; Other (Lower extremity skin discoloration) Objective Vitals Vital Signs Date Time Temp Pulse Resp B/P (MAP) Pulse Ox O2 Delivery O2 Flow Rate FiO2 02/13/25 08:14 97.7 76 19 140/84 (102) 97 97.7 02/12/25 20:00 Room Air* 0 21 Intake/Output Intake and Output 02/13/25 07:00 Intake Total 1100 ml Output Total 1600 ml Balance -500 ml Intake Oral 1100 ml Output Urine Total 1600 ml Medications Current Medications Medications Dose Ordered Sig/Norma Route Start Time Stop Time Status Last Admin Dose Admin Amlodipine Besylate 10 mg DAILY PO 02/12/25 10:00 02/12/25 10:29 10 MG Hydralazine HCl 10 mg Q6HP PRN IV 02/11/25 22:45 02/13/25 00:59 10 MG Diagnostic Test (Pha) 1 strip IQ4HR 02/12/25 00:00 02/13/25 07:51 1 STRIP Insulin Human Regular IQ4HR SC 02/12/25 00:00 02/13/25 07:56 3 UNITS Dextrose 50 ml UD PRN IV 02/11/25 22:45 Sodium Chloride 10 ml Q8HR IV 02/12/25 06:00 02/13/25 05:54 10 ML Acetaminophen/ Hydrocodone Bitart 1 tab Q4HP PRN PO 02/11/25 22:45 02/12/25 10:28 1 TAB Ondansetron HCl 4 mg Q4HP PRN IV 02/11/25 22:45 Docusate Sodium 100 mg BIDPRN PRN PO 02/11/25 22:45 Acetaminophen 650 mg Q6HP PRN PO 02/11/25 22:45 Nitroglycerin 0.4 mg Q5MINP PRN SL 02/11/25 23:45 Morphine Sulfate 2 mg Q30M PRN IV 02/11/25 23:45 Sodium Bicarbonate 650 mg TID PO 02/12/25 14:00 02/13/25 05:54 650 MG Losartan Potassium 50 mg DAILY PO 02/13/25 10:00 Laboratory Results Laboratory Tests 02/12/25 06:48 Cardiac Markers Test 02/12/25 12:07 B-Type Natriuretic Peptide 51.41 pg/mL (0-100) Urinalysis Test 02/12/25 19:00 Urine Color Light-yellow (Yellow) Urine Clarity Turbid (Clear) H Urine pH 6.0 (5.0-9.0) Urine Specific [place] 1.018 (1.001-1.035) Urine Protein 3+ (Negative) H Urine Ketones Negative (Negative) Urine Blood 1+ /uL (Negative) H Urine Nitrite Negative (Negative) Urine Bilirubin Negative (Negative) Urine Urobilinogen Normal mg/dL (Negative) Urine Leukocyte Esterase 2+ /uL (Negative) Urine RBC 125 /hpf (0 - 3) Urine Microscopic WBC 57 /HPF (0-3) H Urine Squamous Epithelial Cells Few /hpf (<5) Urine Bacteria Few /hpf (None Seen) H Urine Yeast (Budding) Loaded /hpf (None Seen) Urine Creatinine 86.84 mg/dL (30.0-125.0) Urine Protein/Creatinine Ratio 9.04 Urine Sodium 16 mmol/L (40-220) L Urine Glucose 1+ mg/dL (Normal) H Urine Total Protein 785.0 mg/dL (1-14) H Labs and/or images reviewed: Labs reviewed by me, Image(s) reviewed by me Assessment/Plan Assessment/Plan Acute kidney injury superimposed on Chronic Kidney Disease secondary to hemodynamically mediated, consult by Dr. Olivia appreciated Hypertensive urgency: Losartan, amlodipine Diabetes mellitus type 2 Atrial fibrillation Bed-bound GERD pantoprazole History of right hip surgery March 2024 Gait disability secondary to right hip surgery CT LS spine, CT hip ordered Physical therapy ordered Patient has no family members Caregiver Mindi [phone] at bedside Plan discussed with: Patient My Orders Orders - TRANG MONTERROSO MD Procedure Category Date Status Time Losartan Tablet PHA 02/13/25 In Process (Cozaar Tablet) 10:00 Cleanse Wound With MONCHO 02/12/25 In Process Wound Clean 11:03 Complete Blood Count LAB 02/13/25 Logged 07:04 Basic Metabolic Panel LAB 02/13/25 Logged 07:04 Date of Service: Feb 13, 2025 Billing Provider: TRANG MONTERROSO MD Common Visit Codes: [id number] INP/OBS CARE(HIGH) TRANG MONTERROSO MD Feb 13, 2025 08:40
[2025-02-13] MEDS: PANTOPRAZOLE 40 MG TAB PO ONE (09:53)
[2025-02-13] MEDS: LOSARTAN POTASSIUM 50 MG TAB PO SCH (09:53)
--- NOTE | 2025-02-13 09:53 | DVHPN2 ---
Progress Note Date Seen: Feb 13, 2025 Medical Necessity Reason Pt with a Central, PICC or Fol: No Subjective Patient reports: No new complaints Other Systems: Patient seen and examined by myself today in follow-up Objective vital signs Vital Sign Date Time Temp Pulse Resp B/P (MAP) Pulse Ox O2 Delivery O2 Flow Rate FiO2 02/13/25 08:14 97.7 76 19 140/84 (102) 97 97.7 02/12/25 20:00 Room Air* 0 21 Total Intake and Output 02/12/25 02/12/25 02/13/25 15:00 23:00 07:00 Intake Total 700 ml 400 ml Output Total 400 ml 1200 ml Balance 300 ml -800 ml medications Current Medications Medications Dose Ordered Sig/Norma Route Start Time Stop Time Status Last Admin Dose Admin Amlodipine Besylate 10 mg DAILY PO 02/12/25 10:00 02/12/25 10:29 10 MG Hydralazine HCl 10 mg Q6HP PRN IV 02/11/25 22:45 02/13/25 00:59 10 MG Diagnostic Test (Pha) 1 strip IQ4HR 02/12/25 00:00 02/13/25 07:51 1 STRIP Insulin Human Regular IQ4HR SC 02/12/25 00:00 02/13/25 07:56 3 UNITS Dextrose 50 ml UD PRN IV 02/11/25 22:45 Sodium Chloride 10 ml Q8HR IV 02/12/25 06:00 02/13/25 05:54 10 ML Acetaminophen/ Hydrocodone Bitart 1 tab Q4HP PRN PO 02/11/25 22:45 02/12/25 10:28 1 TAB Ondansetron HCl 4 mg Q4HP PRN IV 02/11/25 22:45 Docusate Sodium 100 mg BIDPRN PRN PO 02/11/25 22:45 Acetaminophen 650 mg Q6HP PRN PO 02/11/25 22:45 Nitroglycerin 0.4 mg Q5MINP PRN SL 02/11/25 23:45 Morphine Sulfate 2 mg Q30M PRN IV 02/11/25 23:45 Sodium Bicarbonate 650 mg TID PO 02/12/25 14:00 02/13/25 05:54 650 MG Losartan Potassium 50 mg DAILY PO 02/13/25 10:00 Pantoprazole Sodium 40 mg DAILY@0600 PO 02/14/25 06:00 Examination: LUNGS:Normal, CVS:Normal, MSK:Normal laboratory and microbiology Laboratory Tests 02/12/25 06:48 Test 02/12/25 06:48 Range/Units Serum Glucose 127 H 74-106 mg/dL Problem List/Assessment/Plan Problem List/Assessment/Plan Acute kidney injury superimposed Chronic Kidney Disease secondary hemodynamic mediated, FeNa < 1% Hypertensive urgency Diabetes mellitus type 2 Nephrotic range proteinuria, urine protein creatinine ratio >9 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 Atrial fibrillation Nonobstructing left kidney stone Bed-bound Paraplegia Recommendations No new labs Increased urine output Strict I&Os kidney ultrasound reported 1.1 cm nonobstructing left kidney stone Insulin sliding scale Blood pressure control We will continue to follow Plan discussed with: Patient My Orders My Orders Orders - MEGAN CARLTON MD Procedure Category Date Status Time Sodium Bicarb Tab PHA 02/12/25 In Process 14:00 Dietary Evaluation Review Comments: Nutrition Recommendation: 1) Gavin 1 pk BID, MVI w/ minerals 1 tab daily, VitC 500mg BID, Zinc sulfate 220mg BID x 10 days 2) Monitor PO intake, lab values, weight trend, and I/O Expected Outcomes/Goals: Wound to improve Fu 3-5 days MEGAN CARLTON MD Feb 13, 2025 09:53
--- NOTE | 2025-02-13 10:02 | DVH ---
Indication: Right hip pain status post surgery 2023 Technique: CT axial images of the right hip are obtained without contrast. Coronal and sagittal refor mats were obtained. Radiation Dose Information: CTDI volume is 33.52 mGy. Dose-length product is 2.47 mGy*cm Comparison: None FINDINGS /impression: Right femoral neck cannulated screws. The fractures extend beyond the anterior cortex of the right fe moral head by approximately 5 mm. There are sclerotic changes within the right femoral head which may represent sequela of avascular ne crosis. Moderate degenerate changes right hip most pronounced along the posterior hip joint space. Atherosclerotic calcification disease. Prostate enlarged measuring 5.2 cm transversely. Correlate with PSA levels. There is mild cortical irregularity along the lateral aspect of the right femoral head with 2 mm offs et which can represent sequela of a previous fracture. If there is concern for acute fracture/ ree fr acture recommend obtaining MRI of the right hip. Correlate with pain symptoms and tenderness.
--- NOTE | 2025-02-13 10:21 | DVH ---
EXAM: CT LS SPINE WO CONTRAST HISTORY: Unable to walk COMPARISON: None CTDIvol 38.59 mGy, DLP 1241.72 mGy*cm. TECHNIQUE: Multiple axial CT images of the spine were obtained using bone algorithm. Axial and de la torre l reformatting was done. Bone and soft tissue windows were reviewed. FINDINGS: No evidence of definite acute fracture, spinal dislocation, or significant appearing acute subluxatio n is seen. Moderate canal stenosis at L2-L3. Moderate to severe canal stenosis at L3-L4, L4-L5 and L5 -S1. Chronic appearing compression fracture of superior endplate of L3. IMPRESSION: No definite CT evidence of acute fracture or dislocation of the bony lumbar spine.
[2025-02-13 10:35] LABS: Potassium 4.8 mmol/L (3.5-5.1); Sodium 140 mmol/L (136-145)
[2025-02-13 10:36] LABS: Anion Gap 8 (5-15); Calcium 9.8 mg/dL (8.7-10.4); Carbon Dioxide 24 mmol/L (20-31)
[2025-02-13 10:38] LABS: Chloride 108 mmol/L (98-107)
[2025-02-13 10:41] LABS: BUN/Creatinine Ratio 17.3 (10.0-20.0); Blood Urea Nitrogen 41 mg/dL (9-23); Glucose 167 mg/dL (74-106)
[2025-02-13 10:50] LABS: Hematocrit 38.8 % (41.0-53.0); Hemoglobin 12.8 g/dL (13.5-17.5); Mean Corpuscular Hemoglobin 27.4 pg (28.0-32.0); Mean Corpuscular Volume 83.2 fL (80.0-100.0); Nucleated Red Blood Cells % 0.0 %
--- NOTE | 2025-02-13 16:52 | DVH ---
CLINICAL INDICATION: hx of ORIF hip outside facility TECHNIQUE: XY R HIP 1V XRAY Comparison: CT CT R HIP WITH OUT CONTRAST on DOS: 02/13/25 FINDINGS/IMPRESSION: : There is no evidence of acute fracture or dislocation. Soft tissues are unremarkable. Surgical pin fixation of the right hip. Moderate to severe degenerative changes of the right hip.
[2025-02-14] VITALS (8 sets, daily range): BP systolic 143–166; BP diastolic 78–87; PULSE 58–87; RESP 17–20; TEMP 96.8–98.6; O2SAT 93–100
[2025-02-14] MEDS: PANTOPRAZOLE 40 MG TAB PO SCH (05:31)
[2025-02-14 05:38] LABS: Hematocrit 38.9 % (41.0-53.0); Hemoglobin 13.1 g/dL (13.5-17.5); Mean Corpuscular Hemoglobin 28.1 pg (28.0-32.0); Mean Corpuscular Volume 83.5 fL (80.0-100.0); Nucleated Red Blood Cells % 0.0 %
[2025-02-14 05:46] LABS: Anion Gap 11 (5-15); Carbon Dioxide 21 mmol/L (20-31); Potassium 4.9 mmol/L (3.5-5.1); Sodium 141 mmol/L (136-145)
[2025-02-14 05:47] LABS: Calcium 9.7 mg/dL (8.7-10.4); Chloride 109 mmol/L (98-107)
[2025-02-14 05:52] LABS: BUN/Creatinine Ratio 18.9 (10.0-20.0)
[2025-02-14 05:54] LABS: Blood Urea Nitrogen 45 mg/dL (9-23); Glucose 139 mg/dL (74-106)
--- NOTE | 2025-02-14 09:43 | DVHPN2 ---
Reviewed: Care Plan, H&P, Labs, Medications, Previous Orders, Radiology Changes from previous H/P or p: No Changes Eyes: No Pain, No Vision change, No Conjunctivae inflammation, No Eyelid inflammation, No Other, No Redness ENT: No Ear pain, No Ear discharge, No Nose pain, No Nose discharge, No Nose congestion, No Mouth pain, No Mouth swelling, No Throat pain, No Throat swelling, No Other Cardiovascular: No Chest Pain, No Palpitations, No Orthopnea, No Paroxysmal Noc. Dyspnea, No Edema, No Lt Headedness; Other (Hypertension) Respiratory: No Cough, No Dry, No Shortness of breath, No SOB with excertion, No Wheezing, No Hemoptysis, No Pleuritic Pain, No Sputum, No Other Gastrointestinal: No Nausea, No Vomiting, No Abdominal Pain, No Diarrhea, No Constipation, No Melena, No Hematochezia, No Other Genitourinary: No Dysuria, No Frequency, No Incontinence, No Hematuria, No Retention, No Other Musculoskeletal: No other, No neck pain, No shoulder pain, No arm pain, No back pain, No hand pain, No leg pain, No foot pain Skin: No Rash, No Lesions, No Jaundice, No Bruising; Other (Lower extremity skin discoloration) Objective Vitals Vital Signs Date Time Temp Pulse Resp B/P (MAP) Pulse Ox O2 Delivery O2 Flow Rate FiO2 02/14/25 09:30 97.8 76 18 151/80 (103) 95 97.8 02/13/25 20:00 Room Air* 0 21 Intake/Output Intake and Output 02/14/25 07:00 Intake Total 995 ml Output Total 1050 ml Balance -55 ml Intake Oral 995 ml Output Urine Total 1050 ml Medications Current Medications Medications Dose Ordered Sig/Norma Route Start Time Stop Time Status Last Admin Dose Admin Amlodipine Besylate 10 mg DAILY PO 02/12/25 10:00 02/13/25 09:52 10 MG Hydralazine HCl 10 mg Q6HP PRN IV 02/11/25 22:45 02/14/25 05:31 10 MG Diagnostic Test (Pha) 1 strip IQ4HR 02/12/25 00:00 02/14/25 04:22 1 STRIP Insulin Human Regular IQ4HR SC 02/12/25 00:00 02/14/25 04:23 2 UNITS Dextrose 50 ml UD PRN IV 02/11/25 22:45 Sodium Chloride 10 ml Q8HR IV 02/12/25 06:00 02/14/25 05:32 10 ML Acetaminophen/ Hydrocodone Bitart 1 tab Q4HP PRN PO 02/11/25 22:45 02/13/25 13:57 1 TAB Ondansetron HCl 4 mg Q4HP PRN IV 02/11/25 22:45 Docusate Sodium 100 mg BIDPRN PRN PO 02/11/25 22:45 Acetaminophen 650 mg Q6HP PRN PO 02/11/25 22:45 Nitroglycerin 0.4 mg Q5MINP PRN SL 02/11/25 23:45 Morphine Sulfate 2 mg Q30M PRN IV 02/11/25 23:45 Sodium Bicarbonate 650 mg TID PO 02/12/25 14:00 02/14/25 05:31 650 MG Losartan Potassium 50 mg DAILY PO 02/13/25 10:00 02/13/25 09:53 50 MG Pantoprazole Sodium 40 mg DAILY@0600 PO 02/14/25 06:00 02/14/25 05:31 40 MG Laboratory Results Laboratory Tests 02/14/25 05:01 Chemistry Test 02/13/25 10:00 02/14/25 05:01 Calcium Level 9.8 mg/dL (8.7-10.4) 9.7 mg/dL (8.7-10.4) Urinalysis Test 02/12/25 19:00 Urine Color Light-yellow (Yellow) Urine Clarity Turbid (Clear) H Urine pH 6.0 (5.0-9.0) Urine Specific [place] 1.018 (1.001-1.035) Urine Protein 3+ (Negative) H Urine Ketones Negative (Negative) Urine Blood 1+ /uL (Negative) H Urine Nitrite Negative (Negative) Urine Bilirubin Negative (Negative) Urine Urobilinogen Normal mg/dL (Negative) Urine Leukocyte Esterase 2+ /uL (Negative) Urine RBC 125 /hpf (0 - 3) Urine Microscopic WBC 57 /HPF (0-3) H Urine Squamous Epithelial Cells Few /hpf (<5) Urine Bacteria Few /hpf (None Seen) H Urine Yeast (Budding) Loaded /hpf (None Seen) Urine Creatinine 86.84 mg/dL (30.0-125.0) Urine Protein/Creatinine Ratio 9.04 Urine Sodium 16 mmol/L (40-220) L Urine Glucose 1+ mg/dL (Normal) H Urine Total Protein 785.0 mg/dL (1-14) H Labs and/or images reviewed: Labs reviewed by me, Image(s) reviewed by me Assessment/Plan Assessment/Plan Acute kidney injury superimposed on Chronic Kidney Disease secondary to hemodynamically mediated, consult by Dr. Olivia appreciated Hypertensive urgency: Losartan, amlodipine Diabetes mellitus type 2 Atrial fibrillation Bed-bound GERD pantoprazole History of right hip surgery March 2024, right hip x-ray negative for any fracture, orthopedic consult for Dr. Webb pending Gait disability secondary to right hip surgery CT LS spine negative Physical therapy ordered Patient has no family members Caregiver Mindi [phone] at bedside Plan discussed with: Patient My Orders Orders - TRANG MONTERROSO MD Procedure Category Date Status Time * Orthopedic Consult CONS 02/13/25 Transmitted 13:35 Complete Blood Count LAB 02/15/25 Verified 05:00 Complete Blood Count LAB 02/16/25 Verified 05:00 Basic Metabolic Panel LAB 02/15/25 Verified 05:00 Basic Metabolic Panel LAB 02/16/25 Verified 05:00 Psa Total+% Free LAB 02/14/25 Logged 09:27 Date of Service: Feb 14, 2025 Billing Provider: TRANG MONTERROSO MD Common Visit Codes: [id number] INP/OBS CARE(HIGH) TRANG MONTERROSO MD Feb 14, 2025 09:43
--- NOTE | 2025-02-14 10:42 | DVHPN2 ---
Progress Note Date Seen: Feb 14, 2025 Medical Necessity Reason Pt with a Central, PICC or Fol: No Subjective Patient reports: No new complaints Other Systems: Patient seen and examined by myself today in follow-up Objective vital signs Vital Sign Date Time Temp Pulse Resp B/P (MAP) Pulse Ox O2 Delivery O2 Flow Rate FiO2 02/14/25 10:27 151/80 02/14/25 09:30 97.8 76 18 95 97.8 02/13/25 20:00 Room Air* 0 21 Total Intake and Output 02/13/25 02/13/25 02/14/25 15:00 23:00 07:00 Intake Total 620 ml 375 ml Output Total 800 ml 250 ml Balance -180 ml 125 ml medications Current Medications Medications Dose Ordered Sig/Norma Route Start Time Stop Time Status Last Admin Dose Admin Amlodipine Besylate 10 mg DAILY PO 02/12/25 10:00 02/14/25 10:27 10 MG Hydralazine HCl 10 mg Q6HP PRN IV 02/11/25 22:45 02/14/25 05:31 10 MG Diagnostic Test (Pha) 1 strip IQ4HR 02/12/25 00:00 02/14/25 10:00 1 STRIP Insulin Human Regular IQ4HR SC 02/12/25 00:00 02/14/25 10:30 6 UNITS Dextrose 50 ml UD PRN IV 02/11/25 22:45 Sodium Chloride 10 ml Q8HR IV 02/12/25 06:00 02/14/25 05:32 10 ML Acetaminophen/ Hydrocodone Bitart 1 tab Q4HP PRN PO 02/11/25 22:45 02/13/25 13:57 1 TAB Ondansetron HCl 4 mg Q4HP PRN IV 02/11/25 22:45 Docusate Sodium 100 mg BIDPRN PRN PO 02/11/25 22:45 Acetaminophen 650 mg Q6HP PRN PO 02/11/25 22:45 Nitroglycerin 0.4 mg Q5MINP PRN SL 02/11/25 23:45 Morphine Sulfate 2 mg Q30M PRN IV 02/11/25 23:45 Sodium Bicarbonate 650 mg TID PO 02/12/25 14:00 02/14/25 05:31 650 MG Losartan Potassium 50 mg DAILY PO 02/13/25 10:00 02/14/25 10:26 50 MG Pantoprazole Sodium 40 mg DAILY@0600 PO 02/14/25 06:00 02/14/25 05:31 40 MG Examination: LUNGS:Normal, CVS:Normal, MSK:Normal laboratory and microbiology Laboratory Tests 02/14/25 05:01 Test 02/14/25 05:01 Range/Units Serum Glucose 139 H 74-106 mg/dL Problem List/Assessment/Plan Problem List/Assessment/Plan Acute kidney injury superimposed Chronic Kidney Disease stage 4 secondary hemodynamic mediated, FeNa < 1% Hypertensive urgency, improved Diabetes mellitus type 2 Nephrotic range proteinuria, urine protein creatinine ratio >9 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 Atrial fibrillation Nonobstructing left kidney stone Bed-bound Paraplegia Recommendations Kidney function stabilize Chronic Kidney Disease stage 4 Increased urine output Strict I&Os kidney ultrasound reported 1.1 cm nonobstructing left kidney stone Insulin sliding scale Blood pressure control I will sign off this case please reconsult as needed, thank you for the kind Follow-up my office two weeks after discharge Plan discussed with: Patient Dietary Evaluation Review Comments: Nutrition Recommendation: 1) Gavin 1 pk BID, MVI w/ minerals 1 tab daily, VitC 500mg BID, Zinc sulfate 220mg BID x 10 days 2) Monitor PO intake, lab values, weight trend, and I/O Expected Outcomes/Goals: Wound to improve Fu 3-5 days MEGAN CARLTON MD Feb 14, 2025 10:42
--- NOTE | 2025-02-14 12:59 | DVHINCON2 ---
Date of service: Feb 14, 2025 Reason for Consultation Right hip pain hx of surgery History of Present Illness 75 yo M with hx of ORIF Right hip fracture at outside institution. Since that ti me patient has not been able to bear weight. He states hes deconditioned; has been in rehab Past Medical History DM, HTN, AFib, mentioned prolapse disk, bed-bound Family History: FH: cancer G8 FATHER Malignant neoplasm of breast G8 MOTHER Allergies: Coded Allergies: Glipizide (Verified Allergy, Mild, 02/11/25) Home Meds Active Scripts Metformin Hydrochloride (Metformin Hcl) 1,000 Mg Tab, 1 TAB PO BID, #60 TAB 5 Refills Prov:TRANG MONTERROSO MD 02/15/25 Current Medications Current Medications Medications (Trade) Dose Ordered Sig/Norma Route PRN Reason Start Time Stop Time Status Last Admin Pantoprazole Sodium (Protonix Tablet) 40 mg DAILY@0600 PO 02/14/25 06:00 02/14/25 05:31 Review of Systems 10 point ROS is neg except per HPI Vital Signs Vital Signs Date Time Temp Pulse Resp B/P (MAP) Pulse Ox O2 Delivery O2 Flow Rate FiO2 02/14/25 10:27 151/80 02/14/25 09:30 97.8 76 18 95 97.8 02/13/25 20:00 Room Air* 0 21 Physical Exam NAD RLE: ext rotate for comfort +TA/GS weak knee ext/flexion Labs/Diagnostic Data Labs Test 02/14/25 12:30 02/14/25 05:01 02/12/25 19:00 02/12/25 12:07 Range/Units POC Glucose 231 H 70-106 mg/dl White Blood Count 6.6 4.4-10.8 10^3/uL Red Blood Count 4.66 4.5-5.90 10^6/uL Hemoglobin 13.1 L 13.5-17.5 g/dL Hematocrit 38.9 L 41.0-53.0 % Mean Corpuscular Volume 83.5 80.0-100.0 fL Mean Corpuscular Hemoglobin 28.1 28.0-32.0 pg Mean Corpuscular Hemoglobin Concent 33.6 32.0-36.0 g/dL Red Cell Distribution Width 15.4 H 11.8-14.3 % Platelet Count 223 140-450 10^3/uL Mean Platelet Volume 7.3 6.9-10.8 fL Neutrophils (%) (Auto) 70.1 37.0-80.0 % Lymphocytes (%) (Auto) 11.5 10.0-50.0 % Monocytes (%) (Auto) 7.5 0.0-12.0 % Eosinophils (%) (Auto) 10.1 H 0.0-7.0 % Basophils (%) (Auto) 0.8 0.0-2.0 % Neutrophils # (Auto) 4.6 1.6-8.6 10 ^3/uL Lymphocytes # (Auto) 0.8 0.4-5.4 10 ^3/uL Monocytes # (Auto) 0.5 0-1.3 10 ^3/uL Eosinophils # (Auto) 0.7 0-0.8 10 ^3/uL Basophils # (Auto) 0.1 0-0.2 10 ^3/uL Nucleated Red Blood Cells 0.0 % Sodium Level 141 136-145 mmol/L Potassium Level 4.9 3.5-5.1 mmol/L Chloride Level 109 H 98-107 mmol/L Carbon Dioxide Level 21 20-31 mmol/L Anion Gap 11 5-15 Blood Urea Nitrogen 45 H 9-23 mg/dL Creatinine 2.38 H 0.700-1.30 mg/dL Glomerular Filtration Rate Calc 27 >90 mL/min BUN/Creatinine Ratio 18.9 10.0-20.0 Serum Glucose 139 H 74-106 mg/dL Calcium Level 9.7 8.7-10.4 mg/dL Urine Color Light-yellow Yellow Urine Clarity Turbid H Clear Urine pH 6.0 5.0-9.0 Urine Specific [place] 1.018 1.001-1.035 Urine Protein 3+ H Negative Urine Ketones Negative Negative Urine Blood 1+ H Negative /uL Urine Nitrite Negative Negative Urine Bilirubin Negative Negative Urine Urobilinogen Normal Negative mg/dL Urine Leukocyte Esterase 2+ Negative /uL Urine RBC 125 0 - 3 /hpf Urine Microscopic WBC 57 H 0-3 /HPF Urine Squamous Epithelial Cells Few <5 /hpf Urine Bacteria Few H None Seen /hpf Urine Yeast (Budding) Loaded None Seen /hpf Urine Creatinine 86.84 30.0-125.0 mg/dL Urine Protein/Creatinine Ratio 9.04 Urine Sodium 16 L 40-220 mmol/L Urine Glucose 1+ H Normal mg/dL Urine Total Protein 785.0 H 1-14 mg/dL B-Type Natriuretic Peptide 51.41 0-100 pg/mL Vitamin D 25-Hydroxy 55.0 30.0-100 ng/mL Test 02/12/25 06:48 02/11/25 14:32 Range/Units Uric Acid 7.0 3.7-9.2 mg/dL Phosphorus Level 4.0 2.4-5.1 mg/dL Magnesium Level 2.0 1.6-2.6 mg/dL Total Bilirubin 0.2 0.2-1.0 mg/dL Aspartate Amino Transferase (AST) 15 13-40 U/L Alanine Aminotransferase (ALT) 10 7-40 U/L Alkaline Phosphatase 84 46-116 U/L Total Protein 6.1 5.7-8.2 g/dL Albumin 3.7 3.2-4.8 g/dL Parathyroid Hormone (Intact) 155.4 H 18.4-80.1 pg/mL Troponin I High Sensitivity 6 </=54 ng/L Plan/Recommendation 75 yo M with endstage right hip OA/ screw cutout/ hx of ORIF right hip fx at outside institution 1. Toe touch WB RLE with walker 2. PT 3. pain control 4. plan for elective Right ABUNDIO/ hardware removal as outpatient once patient medically improves 5. deconditioned with being bedbound Plan discussed with: Patient HEBER HARTMAN MD Feb 14, 2025 12:59
[2025-02-15] VITALS (9 sets, daily range): BP systolic 132–166; BP diastolic 75–101; PULSE 71–80; RESP 16–20; TEMP 97.7–98.5; O2SAT 95–98
[2025-02-15 07:17] LABS: Hematocrit 38.8 % (41.0-53.0); Hemoglobin 13.0 g/dL (13.5-17.5); Mean Corpuscular Hemoglobin 28.0 pg (28.0-32.0); Mean Corpuscular Volume 83.5 fL (80.0-100.0); Nucleated Red Blood Cells % 0.2 %
[2025-02-15 07:32] LABS: Anion Gap 12 (5-15); Calcium 9.6 mg/dL (8.7-10.4); Potassium 4.8 mmol/L (3.5-5.1); Sodium 142 mmol/L (136-145)
[2025-02-15 07:37] LABS: Carbon Dioxide 19 mmol/L (20-31); Chloride 111 mmol/L (98-107)
[2025-02-15 07:38] LABS: BUN/Creatinine Ratio 18.9 (10.0-20.0)
[2025-02-15 07:41] LABS: Blood Urea Nitrogen 48 mg/dL (9-23); Glucose 124 mg/dL (74-106)
--- NOTE | 2025-02-15 10:44 | DVHPN2 ---
Reviewed: Care Plan, H&P, Labs, Medications, Previous Orders, Radiology Changes from previous H/P or p: No Changes Eyes: No Pain, No Vision change, No Conjunctivae inflammation, No Eyelid inflammation, No Other, No Redness ENT: No Ear pain, No Ear discharge, No Nose pain, No Nose discharge, No Nose congestion, No Mouth pain, No Mouth swelling, No Throat pain, No Throat swelling, No Other Cardiovascular: No Chest Pain, No Palpitations, No Orthopnea, No Paroxysmal Noc. Dyspnea, No Edema, No Lt Headedness; Other (Hypertension) Respiratory: No Cough, No Dry, No Shortness of breath, No SOB with excertion, No Wheezing, No Hemoptysis, No Pleuritic Pain, No Sputum, No Other Gastrointestinal: No Nausea, No Vomiting, No Abdominal Pain, No Diarrhea, No Constipation, No Melena, No Hematochezia, No Other Genitourinary: No Dysuria, No Frequency, No Incontinence, No Hematuria, No Retention, No Other Musculoskeletal: No other, No neck pain, No shoulder pain, No arm pain, No back pain, No hand pain, No leg pain, No foot pain Skin: No Rash, No Lesions, No Jaundice, No Bruising; Other (Lower extremity skin discoloration) Objective Vitals Vital Signs Date Time Temp Pulse Resp B/P (MAP) Pulse Ox O2 Delivery O2 Flow Rate FiO2 02/15/25 09:08 154/97 02/15/25 09:01 98.2 72 16 98 98.2 02/15/25 08:12 Room Air* 0 21 Intake/Output Intake and Output 02/15/25 07:00 Intake Total 2850 ml Balance 2850 ml Intake Oral 2850 ml # Voids 3 Medications Current Medications Medications Dose Ordered Sig/Norma Route Start Time Stop Time Status Last Admin Dose Admin Amlodipine Besylate 10 mg DAILY PO 02/12/25 10:00 02/15/25 09:08 10 MG Hydralazine HCl 10 mg Q6HP PRN IV 02/11/25 22:45 02/14/25 05:31 10 MG Diagnostic Test (Pha) 1 strip IQ4HR 02/12/25 00:00 02/15/25 08:00 1 STRIP Insulin Human Regular IQ4HR SC 02/12/25 00:00 02/15/25 04:04 3 UNITS Dextrose 50 ml UD PRN IV 02/11/25 22:45 Sodium Chloride 10 ml Q8HR IV 02/12/25 06:00 02/15/25 05:42 10 ML Acetaminophen/ Hydrocodone Bitart 1 tab Q4HP PRN PO 02/11/25 22:45 02/13/25 13:57 1 TAB Ondansetron HCl 4 mg Q4HP PRN IV 02/11/25 22:45 Docusate Sodium 100 mg BIDPRN PRN PO 02/11/25 22:45 Acetaminophen 650 mg Q6HP PRN PO 02/11/25 22:45 Nitroglycerin 0.4 mg Q5MINP PRN SL 02/11/25 23:45 Morphine Sulfate 2 mg Q30M PRN IV 02/11/25 23:45 Sodium Bicarbonate 650 mg TID PO 02/12/25 14:00 02/15/25 05:41 650 MG Losartan Potassium 50 mg DAILY PO 02/13/25 10:00 02/15/25 09:07 50 MG Pantoprazole Sodium 40 mg DAILY@0600 PO 02/14/25 06:00 02/15/25 05:41 40 MG Laboratory Results Laboratory Tests 02/15/25 06:22 Chemistry Test 02/15/25 06:22 Calcium Level 9.6 mg/dL (8.7-10.4) Urinalysis Test 02/12/25 19:00 Urine Color Light-yellow (Yellow) Urine Clarity Turbid (Clear) H Urine pH 6.0 (5.0-9.0) Urine Specific [place] 1.018 (1.001-1.035) Urine Protein 3+ (Negative) H Urine Ketones Negative (Negative) Urine Blood 1+ /uL (Negative) H Urine Nitrite Negative (Negative) Urine Bilirubin Negative (Negative) Urine Urobilinogen Normal mg/dL (Negative) Urine Leukocyte Esterase 2+ /uL (Negative) Urine RBC 125 /hpf (0 - 3) Urine Microscopic WBC 57 /HPF (0-3) H Urine Squamous Epithelial Cells Few /hpf (<5) Urine Bacteria Few /hpf (None Seen) H Urine Yeast (Budding) Loaded /hpf (None Seen) Urine Creatinine 86.84 mg/dL (30.0-125.0) Urine Protein/Creatinine Ratio 9.04 Urine Sodium 16 mmol/L (40-220) L Urine Glucose 1+ mg/dL (Normal) H Urine Total Protein 785.0 mg/dL (1-14) H Labs and/or images reviewed: Labs reviewed by me, Image(s) reviewed by me Assessment/Plan Assessment/Plan Acute kidney injury superimposed on Chronic Kidney Disease secondary to hemodynamically mediated, consult by Dr. Olivia appreciated Hypertensive urgency: Losartan, amlodipine Diabetes mellitus type 2 Atrial fibrillation Bed-bound GERD pantoprazole History of right hip surgery March 2024 at an outside institution, orthopedic consult by Dr. Webb appreciated: Endstage right hip OA/ screw cutout/ hx of ORIF right hip fx at outside institution: Advised pain management physical therapy and hardware removal and right total hip arthroplasty as an outpatient once the patient is medically stabilized Gait disability secondary to right hip surgery CT LS spine negative Physical therapy ordered Patient has no family members Caregiver Mindi [phone] at bedside Discussed with the patient and the caregiver and the patient and the patient is being discharged to residential facility for physical therapy and pain management Plan discussed with: Patient Date of Service: Feb 15, 2025 Billing Provider: TRANG MONTERROSO MD Common Visit Codes: [id number] INP/OBS CARE(HIGH) TRANG MONTERROSO MD Feb 15, 2025 10:44
--- NOTE | 2025-02-15 10:54 | DVHDS2 ---
Discharge Summary Date of Admission Feb 11, 2025 at 23:33 Date of Discharge: Feb 15, 2025 Admitting Diagnosis Right hip pain Wounds: None Labs/Diagnostic Data: Laboratory Results Test 02/15/25 08:45 02/15/25 06:22 02/14/25 05:01 02/12/25 19:00 POC Glucose 150 mg/dl (70-106) White Blood Count 6.8 10^3/uL (4.4-10.8) Red Blood Count 4.65 10^6/uL (4.5-5.90) Hemoglobin 13.0 g/dL (13.5-17.5) Hematocrit 38.8 % (41.0-53.0) Mean Corpuscular Volume 83.5 fL (80.0-100.0) Mean Corpuscular Hemoglobin 28.0 pg (28.0-32.0) Mean Corpuscular Hemoglobin Concent 33.5 g/dL (32.0-36.0) Red Cell Distribution Width 15.5 % (11.8-14.3) Platelet Count 226 10^3/uL (140-450) Mean Platelet Volume 7.5 fL (6.9-10.8) Neutrophils (%) (Auto) 70.5 % (37.0-80.0) Lymphocytes (%) (Auto) 11.7 % (10.0-50.0) Monocytes (%) (Auto) 7.6 % (0.0-12.0) Eosinophils (%) (Auto) 9.4 % (0.0-7.0) Basophils (%) (Auto) 0.8 % (0.0-2.0) Neutrophils # (Auto) 4.8 10 ^3/uL (1.6-8.6) Lymphocytes # (Auto) 0.8 10 ^3/uL (0.4-5.4) Monocytes # (Auto) 0.5 10 ^3/uL (0-1.3) Eosinophils # (Auto) 0.6 10 ^3/uL (0-0.8) Basophils # (Auto) 0.1 10 ^3/uL (0-0.2) Nucleated Red Blood Cells 0.2 % Sodium Level 142 mmol/L (136-145) Potassium Level 4.8 mmol/L (3.5-5.1) Chloride Level 111 mmol/L (98-107) Carbon Dioxide Level 19 mmol/L (20-31) Anion Gap 12 (5-15) Blood Urea Nitrogen 48 mg/dL (9-23) Creatinine 2.54 mg/dL (0.700-1.30) Glomerular Filtration Rate Calc 25 mL/min (>90) BUN/Creatinine Ratio 18.9 (10.0-20.0) Serum Glucose 124 mg/dL (74-106) Calcium Level 9.6 mg/dL (8.7-10.4) Urine Color Light-yellow (Yellow) Urine Clarity Turbid (Clear) Urine pH 6.0 (5.0-9.0) Urine Specific [place] 1.018 (1.001-1.035) Urine Protein 3+ (Negative) Urine Ketones Negative (Negative) Urine Blood 1+ /uL (Negative) Urine Nitrite Negative (Negative) Urine Bilirubin Negative (Negative) Urine Urobilinogen Normal mg/dL (Negative) Urine Leukocyte Esterase 2+ /uL (Negative) Urine RBC 125 /hpf (0 - 3) Urine Microscopic WBC 57 /HPF (0-3) Urine Squamous Epithelial Cells Few /hpf (<5) Urine Bacteria Few /hpf (None Seen) Urine Yeast (Budding) Loaded /hpf (None Seen) Urine Creatinine 86.84 mg/dL (30.0-125.0) Urine Protein/Creatinine Ratio 9.04 Urine Sodium 16 mmol/L (40-220) Urine Glucose 1+ mg/dL (Normal) Urine Total Protein 785.0 mg/dL (1-14) Test 02/12/25 12:07 02/12/25 06:48 02/11/25 14:32 B-Type Natriuretic Peptide 51.41 pg/mL (0-100) Vitamin D 25-Hydroxy 55.0 ng/mL (30.0-100) Uric Acid 7.0 mg/dL (3.7-9.2) Phosphorus Level 4.0 mg/dL (2.4-5.1) Magnesium Level 2.0 mg/dL (1.6-2.6) Total Bilirubin 0.2 mg/dL (0.2-1.0) Aspartate Amino Transferase (AST) 15 U/L (13-40) Alanine Aminotransferase (ALT) 10 U/L (7-40) Alkaline Phosphatase 84 U/L (46-116) Total Protein 6.1 g/dL (5.7-8.2) Albumin 3.7 g/dL (3.2-4.8) Parathyroid Hormone (Intact) 155.4 pg/mL (18.4-80.1) Troponin I High Sensitivity 6 ng/L (</=54) Other Laboratory Tests 02/15/25 06:22 Brief Hx & Hospital Course: 75-year-old male go ahead surgery for the right hip March 2024 at an outside and initiation burden by caregiver for right hip pain CT showed screws were cut out and had were his lose seen by orthopedic Dr Webb advised pain management physical therapy weight-bearing as tolerated right lower extremity and removal of hardware and total right hip arthroplasty as an outpatient once he is medically stabilized PK 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 CT LS spine is negative Patient has no family members. Discussed with the caregiver Mindi [phone] and is being discharged to [facility] per choice of the patient and the caregiver Consults/Reason for consult Orthopedic Dr Webb Operations or Procedures CT right hip Condition at Discharge: Fair Final Diagnosis/Problems List Acute kidney injury superimposed on Chronic Kidney Disease secondary to hemodynamically mediated, consult by Dr. Olivia appreciated Hypertensive urgency: Losartan, amlodipine Diabetes mellitus type 2 Atrial fibrillation Bed-bound GERD pantoprazole History of right hip surgery March 2024 at an outside institution, orthopedic consult by Dr. Webb appreciated: Endstage right hip OA/ screw cutout/ hx of ORIF right hip fx at outside institution: Advised pain management physical therapy and hardware removal and right total hip arthroplasty as an outpatient once the patient is medically stabilized Gait disability secondary to right hip surgery CT LS spine negative Discharge Disposition: [facility] Facility Discharge Instruct/Medications Diet: Cardiac 2g Na,low cholest Activity: See Comment Activity comment: Weight-bearing right lower extremity as tolerated Follow Up/Referral[facility] Medications: see list 39 (Time taken for discharge summary 39 minutes) Discharge Statement: "Patient was advised to return to the ER or call 911 if any headaches, dizziness, shortness of breath, chest pain, abdominal pain, bleeding, fevers, or worsening of medical condition. Patient was counseled about treatment plan, medications, possible side effects, patientverbalized understanding. All questions were answered to the best of my ability. This discharge took greater then 30 minutes in planning, reviewing documentation, counseling the patient, and discussing with other team members." ASSESSMENT ASSESSMENT Hospital Course Improved Assessment Acute kidney injury superimposed on Chronic Kidney Disease secondary to hemodynamically mediated, consult by Dr. Olivia appreciated Hypertensive urgency: Losartan, amlodipine Diabetes mellitus type 2 Atrial fibrillation Bed-bound GERD pantoprazole History of right hip surgery March 2024 at an outside institution, orthopedic consult by Dr. Webb appreciated: Endstage right hip OA/ screw cutout/ hx of ORIF right hip fx at outside institution: Advised pain management physical therapy and hardware removal and right total hip arthroplasty as an outpatient once the patient is medically stabilized Gait disability secondary to right hip surgery CT LS spine negative Date of Service: Feb 15, 2025 Billing Provider: TRANG MONTERROSO MD Common Visit Codes: [id number] DISCH DAY >30min TRANG MONTERROSO MD Feb 15, 2025 10:54
[2025-02-15] MEDS ORDERED: METF-372 PO (11:56)
[2025-02-15] MEDS ORDERED: HYDR-4902 PO (14:24)
--- NOTE | 2025-02-15 14:26 | ECG ---
[facility] Test Date: 2025-02-13 Test Time: 00:52:38 Pat Name: GAURAV MCCARTHY Department: Respiratoy Room: 0218T A Gender: M Undercutter: JOVANY : 1950 Requested By: ARVIN ROMO Order Number: [id number] Reading MD: Félix Tlaamantes Measurements Intervals [place] Rate: 64 P: 18 WI: 183 QRS: 90 QRSD: 112 T: 84 QT: 422 QTc: 436 Interpretive Statements Sinus rhythm Borderline intraventricular conduction delay Electronically Signed On 02-16-2025 13:21:37 PDT by Félix Talamantes Please click the below link to view image of tracing.
[2025-02-16 07:07] LABS: Prostate Specific Antigen 1.7 ng/mL (0.0-4.0)
== END 2025-02-15 21:36 | disposition home health service (06) | DRG 560 ==
LOC: ER 13:21 → EDBD 13:21 → OVERFLOW 23:33 → TELE-CENTR 02-12 02:43
PROVIDERS: ADMIT Family Medicine; ATTEND Family Medicine
DX: T84.89XA Other specified complication of internal orthopedic prosthetic devices, implants and grafts, initial encounter (principal); G82.20 Paraplegia, unspecified; N17.9 Acute kidney failure, unspecified; I16.0 Hypertensive urgency; E11.22 Type 2 diabetes mellitus with diabetic chronic kidney disease; E11.65 Type 2 diabetes mellitus with hyperglycemia; I48.91 Unspecified atrial fibrillation; N18.9 Chronic kidney disease, unspecified; K21.9 Gastro-esophageal reflux disease without esophagitis; I12.9 Hypertensive chronic kidney disease with stage 1 through stage 4 chronic kidney disease, or unspecified chronic kidney disease; R80.9 Proteinuria, unspecified; N20.0 Calculus of kidney; M16.11 Unilateral primary osteoarthritis, right hip; Z96.641 Presence of right artificial hip joint; R26.89 Other abnormalities of gait and mobility; Y83.8 Other surgical procedures as the cause of abnormal reaction of the patient, or of later complication, without mention of misadventure at the time of the procedure; X58.XXXA Exposure to other specified factors, initial encounter; Y93.89 Activity, other specified; E87.5 Hyperkalemia; Z74.01 Bed confinement status; Z80.3 Family history of malignant neoplasm of breast; Z79.4 Long term (current) use of insulin; Y92.89 Other specified places as the place of occurrence of the external cause; Y99.8 Other external cause status
CPT/HCPCS: 36415; 71045; 72131; 73501; 73700; 76775; 80048; 80053; 81001; 82306; 82570; 82962; 83735; 83880; 83970; 84100; 84154; 84156; 84300; 84484; 84550; 85025; 93005; 96361; 96374; 97163; 99291; G0378; J1815